=== PATIENT | female | born 1995 | race Caucasian/White ===

== ENCOUNTER 2018-08-04 08:00 | Outpatient (CLI) | payer OTHER ==
[2018-08-04 17:29] LABS: MUDS CUTOFF CONCENTRATIONS CUTOFF CONC BELOW:
[2018-08-04 19:41] LABS: AMPHETAMINE SCREEN,URINE NEGATIVE (NEGATIVE); BENZODIAZEPINES SCREEN, URINE NEGATIVE (NEGATIVE); COCAINE SCREEN URINE NEGATIVE (NEGATIVE); METHADONE SCREEN, URINE NEGATIVE (NEGATIVE); METHAMPHETAMINES SCREEN, URINE NEGATIVE (NEGATIVE); OPIATE SCREEN, URINE NEGATIVE (NEGATIVE); OXYCODONE SCREEN, URINE NEGATIVE (NEGATIVE); PROPOXYPHENE SCREEN, URINE NEGATIVE (NEGATIVE); TRICYCLIC ANTIDEPRESSANT,URINE NEGATIVE (NEGATIVE)
== END 2018-08-04 23:59 ==
LOC: LAB.R 08:00
PROVIDERS: ATTEND Nurse Practitioner Obstetrics & Gynecology
DX: Z36.89 Encounter for other specified antenatal screening (principal)
CPT/HCPCS: 80306; 87491; 87591

== ENCOUNTER 2018-08-25 13:02 | Outpatient (CLI) | payer OTHER ==
[2018-08-25 13:35] LABS: BASOPHILS % (AUTO) 0.4 %; EOSINOPHILS # (AUTO) 0.2 10^3/uL (0.0-0.7); HGB - HEMOGLOBIN 12.6 g/dL (12.0-16.0); LYMPHOCYTES # (AUTO) 1.5 10^3/uL (1.5-3.5); LYMPHOCYTES % (AUTO) 14.8 %; MEAN CORPUSCULAR HEMOGLOBIN 32.2 pg (27.0-31.0); MEAN CORPUSCULAR HGB CONC 35.1 g/dL (32.0-36.0); MEAN CORPUSCULAR VOLUME 91.6 fL (81.0-99.0); MEAN PLATELET VOLUME 7.1 fL (7.9-10.8); MONOCYTES # (AUTO) 0.6 10^3/uL (0.0-1.0); MONOCYTES % (AUTO) 5.4 %; NEUTROPHILS % (AUTO) 77.4 %; PLT - PLATELET COUNT 263 10^3/uL (130-450); RED BLOOD COUNT 3.93 10^6/uL (4.20-5.40); RED CELL DISTRIBUTION WIDTH 14.4 % (12.0-15.0); WHITE BLOOD COUNT 10.3 x10^3/uL (4.8-10.8)
[2018-08-25 14:00] LABS: BILIRUBIN,URINE NEGATIVE (NEGATIVE); GLUCOSE, URINE (UA) NEGATIVE (NEGATIVE); KETONES,URINE (UA) NEGATIVE (NEGATIVE); LEUKOCYTE ESTERASE, URINE NEGATIVE (NEGATIVE); NITRITE,URINE NEGATIVE (NEGATIVE); OCCULT BLOOD,URINE NEGATIVE (NEGATIVE); PH,URINE 6.5 PH (5.0-7.5); PROTEIN,URINE NEGATIVE (NEGATIVE); UROBILINOGEN,URINE 0.2 (NORMAL) E.U./dL (NORMAL)
[2018-08-25 14:10] LABS: CLARITY,URINE HAZY (CLEAR)
[2018-08-25 14:11] LABS: BACTERIA,URINE Few /HPF (None Seen); RBC,URINE 0-5 /HPF (0-5); SQUAMOUS EPITHELIAL CELL,UR MOD Squamous (<= Few)
[2018-08-26 11:42] LABS: HIV AG/AB 4TH GEN NON-REACTIVE (NON-REACTIVE)
[2018-08-26 13:17] LABS: HEPATITIS B SURFACE ANTIGEN NON-REACTIVE (NON-REACTIVE); HEPATITIS C ANTIBODY NON-REACTIVE (NON-REACTIVE)
== END 2018-08-25 13:03 | disposition home or self-care (01) ==
LOC: LAB 13:02
PROVIDERS: ATTEND Nurse Practitioner Obstetrics & Gynecology
DX: Z36.89 Encounter for other specified antenatal screening (principal)
CPT/HCPCS: 36415; 81001; 81599; 85025; 86592; 86762; 86803; 86850; 86900; 86901; 87086; 87340; 87389

== ENCOUNTER 2018-09-29 12:21 | Outpatient (CLI) | payer OTHER ==
--- NOTE | 2018-10-01 15:29 | Ultrasound Report ---
Reason: SUPERVISION OF NORMAL Procedure Date: 09/29/2018 Accession Number: [id number] / [id number] Procedure: US - OB Detailed Eval CPT Code: FULL RESULT: EXAM: COMPLETE OBSTETRICAL ULTRASOUND EXAM DATE: 09/29/2018 01:48 PM. CLINICAL HISTORY: anatomic survey. COMPARISON: None. Prior examinations not available for comparison at the time of dictation. TECHNIQUE: Real-time sonographic evaluation of the fetus performed by the rotor pilot. Multiple account representative static images were saved for review. DATING: Established EGA 19 weeks 6 days with JUSTYN 02/17/2019 based on stated dating. EGA 20 weeks 3 days with JUSTYN 02/13/2019 based on the current ultrasound. GENERAL EVALUATION Elizabeth . Cardiac activity: 142 bpm. movement: Visualized. Presentation: Variable. Placenta: Posterior position. No evidence for previa. Umbilical cord: 3 vessel cord. Central placental cord origin. Amniotic fluid: Normal. NAILA 15.1 cm. MVP 5.1 cm. BIOMETRY Bi-Parietal Diameter (BPD): 4.8 cm, 20 weeks 3 days Head Circumference (HC): 17.8 cm, 20 weeks 2 days Abdominal Circumference (AC): 15.4 cm, 20 weeks 4 days Femur Length (FL): 3.3 cm, 20 weeks 2 days Estimated Weight: 354 g, 77th percentile for 19 weeks 6 days. ANATOMY Transverse view of the kidneys is suboptimal. There is possible bilateral pyelectasis with the renal pelvises measuring 4 mm bilaterally (remeasured on image 66). View of the interventricular septum was not obtained. Remaining cardiac views, including the four-chamber heart and right and left ventricular outflow tracts, are unremarkable. Remainder of anatomy, including the intracranial structures, profile, face/nose/lips, stomach, abdominal wall and cord insertion, diaphragm, bladder, and extremities were visualized and demonstrate no abnormality. MATERNAL STRUCTURES Uterus: Unremarkable. Cervix: Long and closed. Transabdominal length 5 cm. Right ovary/adnexa: Unremarkable. Left ovary/adnexa: Ovary not visualized. However, adnexa is unremarkable. Free fluid: None. IMPRESSION: 1. Elizabeth live intrauterine in variable presentation with gestational age 19 weeks 6 days based on stated dating. 2. Estimated weight is at the 77th percentile, which is within expected limits for assigned dating. 3. Transverse view of the kidneys is somewhat suboptimal. There is possible bilateral pyelectasis with renal pelvises measuring 4 mm. In addition, a clear view of the interventricular septum was not obtained. Recommend follow-up ultrasound in 1-2 weeks to reassess these structures. 4. Remainder of anatomy is well visualized and unremarkable. No structural abnormalities are demonstrated. 5. Posterior placenta without evidence for previa. 6. Amniotic fluid volume is within normal limits. RADIA
== END 2018-09-29 12:22 | disposition home or self-care (01) ==
LOC: DI 12:21
PROVIDERS: ATTEND Registered Nurse
DX: Z34.90 Encounter for supervision of normal pregnancy, unspecified, unspecified trimester (principal)
CPT/HCPCS: 76811

== ENCOUNTER 2018-10-16 13:20 | Outpatient (CLI) | payer OTHER ==
--- NOTE | 2018-10-16 15:42 | Ultrasound Report ---
Reason: ENCTR FOR OTHER SPECIFIED SCREENING Procedure Date: 10/16/2018 Accession Number: [id number] / [id number] Procedure: US - OB F/U or Repeat CPT Code: FULL RESULT: EXAM: FOLLOW-UP OBSTETRICAL ULTRASOUND. EXAM DATE: 10/16/2018 02:13 PM. CLINICAL HISTORY: Completion of anatomy survey. Previously limited visualization of the interventricular septum and previous question of pyelectasis. COMPARISON: 09/29/2018. TECHNIQUE: Real-time sonographic evaluation of the fetus performed by the helicopter dispatcher. Multiple customer relations representative static images were saved for review. DATING: Established EGA 22 weeks 2 days with JUSTYN 02/17/2019 based on working obstetrics due date. GENERAL EVALUATION Elizabeth . Cardiac activity: 146 bpm. movement: Visualized. Presentation: Cephalic. Placenta: Posteriorly in the fundus position. Amniotic fluid: Normal. NAILA 14.6 cm. MVP 5.7 cm. ANATOMY Reevaluation of the kidneys demonstrates normal appearance with renal pelvices measuring up to 3.5 and up to 2.7 mm respectively, within normal limits. Visualization of the interventricular septum is once again suboptimal. MATERNAL STRUCTURES The maternal cervix is long and closed, 4.6 cm. IMPRESSION: 1. Elizabeth live intrauterine with gestational age 22 weeks 2 days based on working obstetrics due date. 2. Normal sonographic appearance of the kidneys and renal pelvices. 3. The interventricular septum is once again not adequately visualized. RADIA
== END 2018-10-16 13:21 | disposition home or self-care (01) ==
LOC: DI 13:20
PROVIDERS: ATTEND Registered Nurse
DX: Z36.89 Encounter for other specified antenatal screening (principal)
CPT/HCPCS: 76816

== ENCOUNTER 2018-11-10 09:26 | Outpatient (CLI) | payer OTHER ==
[2018-11-10 11:18] LABS: HGB - HEMOGLOBIN 12.3 g/dL (12.0-16.0); MEAN CORPUSCULAR HEMOGLOBIN 32.2 pg (27.0-31.0); MEAN CORPUSCULAR HGB CONC 33.6 g/dL (32.0-36.0); MEAN CORPUSCULAR VOLUME 95.8 fL (81.0-99.0); MEAN PLATELET VOLUME 7.2 fL (7.9-10.8); RED BLOOD COUNT 3.82 10^6/uL (4.20-5.40); WHITE BLOOD COUNT 12.1 x10^3/uL (4.8-10.8)
== END 2018-11-10 09:27 | disposition home or self-care (01) ==
LOC: LAB 09:26
PROVIDERS: ATTEND Obstetrics & Gynecology
DX: Z34.90 Encounter for supervision of normal pregnancy, unspecified, unspecified trimester (principal)
CPT/HCPCS: 36415; 82950; 85027; 86850

== ENCOUNTER 2018-11-22 11:26 | Outpatient (CLI) | payer OTHER ==
--- NOTE | 2018-11-22 13:05 | Ultrasound Report ---
Reason: SUPERVISION OF NORMAL Procedure Date: 11/22/2018 Accession Number: [id number] / [id number] Procedure: US - OB F/U or Repeat CPT Code: FULL RESULT: EXAM: FOLLOW-UP OBSTETRICAL ULTRASOUND EXAM DATE: 11/22/2018 11:33 AM. CLINICAL HISTORY: Limited obstetric follow-up imaging for completion of anatomy survey, specific attention to the interventricular septum. COMPARISON: OB F/U OR REPEAT 10/16/2018 2:13 PM. TECHNIQUE: Real-time sonographic evaluation of the fetus performed by the catapult and arresting gear officer. Multiple client services representative static images were saved for review. DATING: Established EGA 27 weeks 4 days with JUSTYN 02/17/2019 based on working due date. GENERAL EVALUATION Elizabeth . Cardiac activity: 139 bpm. movement: Visualized. Presentation: Cephalic. Placenta: Posterior position. Amniotic fluid: Normal. NAILA 15.1 cm. MVP 4.2 cm. ANATOMY The four-chamber cardiac view, right ventricular outflow tract view, left ventricular outflow tract view are all well demonstrated and normal in appearance. MATERNAL STRUCTURES The cervix is long and closed measuring 4.8 cm. IMPRESSION: 1. Elizabeth live intrauterine with gestational age 27 weeks 4 days based on working due date. 2. Normal completion of the anatomy survey. RADIA
== END 2018-11-22 11:27 | disposition home or self-care (01) ==
LOC: DI 11:26
PROVIDERS: ATTEND Obstetrics & Gynecology
DX: Z34.90 Encounter for supervision of normal pregnancy, unspecified, unspecified trimester (principal)
CPT/HCPCS: 76816

== ENCOUNTER 2019-01-22 20:36 | Emergency (ER) | payer OTHER ==
[2019-01-22] MEDS ORDERED: PROPARACAINE 0.5% OPHTH DROPS 15 ML RIGHTEYE STA (22:14)
--- NOTE | 2019-01-22 22:41 | ED Physician Documentation ---
PD HPI OPHTHO - Stated complaint Stated Complaint: LFT EYE PAIN - Chief complaint Chief Complaint: Heent - History obtained from History obtained from: Patient - History of Present Illness Timing - onset: Enter time (1999), Last night Timing - duration: Days (1) Timing - details: Abrupt onset, Still present Location: Left Quality / character: Sharp Associated symptoms: Redness, FB sensation. No: Swelling, Tearing, Discharge Contributing factors: Other (felt like she got something in the eye last night) Similar symptoms before: Has not had sx before Recently seen: Clinic (routine OB care at 36wks) - Additional information Additional information: Previously well 24-year-old female who is 36 weeks was getting ready for bed last night when she felt something got into her left eye. She had a foreign body sensation in the left eye all night she was only able to sleep bipolar putting her hand over her eye and not moving her eye she is had persistence of the pain today and she is come to the emergency department after calling the triage nurse. Review of Systems Constitutional: denies: Fever Eyes: reports: Irritation. denies: Loss of vision, Decreased vision, Photophobia, Discharge Ears: denies: Ear pain Nose: denies: Congestion Throat: denies: Sore throat Respiratory: denies: Cough PD PAST MEDICAL HISTORY - Past Medical History Past Medical History: No Cardiovascular: None Respiratory: None Neuro: None Endocrine/Autoimmune: None GI: None DYE AUTOMATION OPERATOR: None : None HEENT: None Psych: None Musculoskeletal: None Derm: None - Past Surgical History Past Surgical History: No - Present Medications Home Medications: Ambulatory Orders Medication Instructions Recorded Confirmed Neomycin/Poly/Dex Ophth Drops 1 drops LEFTEYE QID #1 bottle 01/22/19 [Maxitrol Ophth Drops] - Allergies Allergies/Adverse Reactions: Allergies Allergy/AdvReac Type Severity Reaction Status Date / Time No Known Drug Allergies Allergy Verified 01/22/19 20:57 - Social History Does the pt smoke?: No Smoking Status: Never smoker Does the pt drink ETOH?: No Does the pt have substance abuse?: No - Immunizations Immunizations are current?: Yes - POLST Patient has POLST: No PD ED PE NORMAL - Vitals Vital signs reviewed: Yes (hypertensive ) - General General: Alert and oriented X 3, No acute distress, Well developed/nourished - HEENT HEENT: Atraumatic, PERRL, EOMI - Neck Neck: Supple, no meningeal sign, No bony TTP - Respiratory Respiratory: No respiratory distress - Derm Derm: Normal color, Warm and dry, No rash - Extremities Extremities: No deformity, No edema - Neuro Neuro: Alert and oriented X 3, product marketing director 2-12 intact, No motor deficit, No sensory deficit, Normal speech Eye Opening: Spontaneous Motor: Obeys Commands Verbal: Oriented GCS Score: 15 - Psych Psych: Normal mood, Normal affect PD ED PE EXPANDED - Eyes Eyes: Visual acuity - see nn, PERRL, Normal accommodation, EOMI, Normal eyelids, No eyelid FB (everted), Nl conjunctiva/sclera, Normal corneas, Anterior chambers clear. No: Eyelid injury, Eyelid swelling, Eyelid erythema, Exudate, Conj/sclera FB, Subconj hemorrhage, Scleral icterus, Corneal abrasion, Corneal ulcer, Fluorescein uptake, Hyphema, Narrow angle Results - Vitals Vitals: Vital Signs - 24 hr 01/22/19 20:53 Temperature 36.3 C L Heart Rate 98 Respiratory 18 Rate Blood Pressure 143/90 H O2 Saturation 96 Oxygen O2 Source Room air PD MEDICAL DECISION MAKING - ED course Complexity details: considered differential, d/w patient ED course: 24-year-old female with a foreign body sensation in the left eye persistent at 24 hours has no specific findings on physical examination. She has no forcing uptake and no abnormality to the eye itself. The eyelid is everted there is no evidence of foreign body. She has relief of her pain with the alkaline consistent with a corneal abrasion. She is treated and we will use expectant management. She has referral to ophthalmology should she have persistence of her symptoms tomorrow. Departure - Departure Disposition: 01 Home, Self Care Clinical Impression: Pain in eye Qualifiers: Laterality: left Qualified Code(s): H57.12 - Ocular pain, left eye Condition: Stable Instructions: ED Eye Injury Corneal Abrasion Follow-Up: Niraj Alfred MD [Provider Admit Priv/Credential] - Prescriptions: Neomycin/Poly/Dex Ophth Drops [Maxitrol Ophth Drops] 1 drops LEFTEYE QID #1 bottle Comments: Today I do not see any evidence of a corneal abrasion your clinical course is consistent with an abrasion and this may have healed by now as is usual at 24 hours. If you continue to have pain tomorrow follow-up with the ophthalm ologist.
[2019-01-22] MEDS ORDERED: NEOMYCIN/POLYMYX/DEXAMETH OPHTH DROPS 5 ML RIGHTEYE STA (22:46)
[2019-01-22 22:57] VITALS: BP 121/89
== END 2019-01-22 22:58 | disposition home or self-care (01) ==
LOC: ED 20:36
DX: O99.89 Other specified diseases and conditions complicating pregnancy, childbirth and the puerperium (principal); H57.12 Ocular pain, left eye; Z3A.36 36 weeks gestation of pregnancy
CPT/HCPCS: 99282; 99284; J3490

== ENCOUNTER 2019-01-23 09:18 | Outpatient (CLI) | payer OTHER ==
[2019-01-23 21:34] LABS: TRICHOMONAS VAGINALIS DNA NEGATIVE (NEGATIVE)
== END 2019-01-23 23:59 | disposition home or self-care (01) ==
LOC: LAB.R 09:18
PROVIDERS: ATTEND Nurse Practitioner Obstetrics & Gynecology
DX: Z36.85 Encounter for antenatal screening for Streptococcus B (principal); Z36.89 Encounter for other specified antenatal screening
CPT/HCPCS: 87491; 87591; 87661; 87797

== ENCOUNTER 2019-02-04 03:45 | Outpatient (CLI) | payer OTHER ==
[2019-02-04] MEDS ORDERED: SODIUM CHLORIDE FLUSH 0.9% 10 ML SYRINGE ONE (04:33)
[2019-02-04 04:56] VITALS: BP 123/72
[2019-02-04 05:05] LABS: BACTERIA,URINE Few /HPF (None Seen); BILIRUBIN,URINE NEGATIVE (NEGATIVE); CLARITY,URINE HAZY (CLEAR); GLUCOSE, URINE (UA) NEGATIVE (NEGATIVE); KETONES,URINE (UA) NEGATIVE (NEGATIVE); LEUKOCYTE ESTERASE, URINE SMALL (NEGATIVE); NITRITE,URINE NEGATIVE (NEGATIVE); OCCULT BLOOD,URINE MODERATE (NEGATIVE); PROTEIN,URINE 100 mg/dL (NEGATIVE); SQUAMOUS EPITHELIAL CELL,UR FEW Squamous (<= Few); UROBILINOGEN,URINE 0.2 (NORMAL) E.U./dL (NORMAL)
--- NOTE | 2019-02-04 05:31 | Labor Flowsheet ---
Labor Flowsheet Datetime Report Generated by CPN: 02/04/2019 05:30 Datetime: 02/04/2019 04:25 VAGINAL EXAM Vaginal Exam Comments: Vaginal swab collected for wet mount and to lab. UA sent to lab. Datetime: 02/04/2019 04:22 Stage of : OB Triage PATIENT CARE Provider Reviewed Strip: No Strip Reviewed by: [email or web address] COMMUNICATION Communication: Call/Page Placed to Provider Provider Notified (Name): FELECIA Monae Notification Reason: Status Update Communication Comments: Provider notified of pt arrival and c/o low pelvic pain since last noc, wor se tonight. Pt also has c/o sciatic nerve pain affecting the loft leg. Reports no ctx, bleeding , f luid leaking or any other c/o. Baby moving well, no other probs during . Orders rcd to col lect wet mount, send UA. Datetime: 02/04/2019 04:01 VITAL SIGNS NBP Sys/Miley/Mean (mmHg): 123 : 72 : 85 Pulse: 120
[2019-02-04] MEDS ORDERED: cephALEXin 250 MG CAPSULE PO STA (05:41)
[2019-02-04] MEDS ORDERED: NITROFURANTOIN MACRO 100 MG CAPSULE PO SCH (09:00)
--- NOTE | 2019-02-04 10:32 | PROVIDER PROGRESS NOTE ---
- HPI Chief Complaint: Labor Check Current : Current EDU 02/17/19 Gestation 38 Weeks and 1 Days 1 Para 0 Vital Signs Temperature 36.7 C 02/04/19 04:18 Heart Rate 123 H 02/04/19 04:18 Respiratory Rate 16 02/04/19 04:18 Blood Pressure 123/72 02/04/19 04:18 Temperature 36.7 C 02/04/19 04:18 Heart Rate 123 H 02/04/19 04:18 Respiratory Rate 16 02/04/19 04:18 Blood Pressure 123/72 02/04/19 04:18 O2 Saturation - Exam S: Flavia present to [facility] with c/o constant lower abdominal and pelvic cramping. She reports she noticed the cramping yesterday evening when she was getting ready for bed and then states last night her cramping returned. She denies vaginal bleeding or leakage of fluid and reports +FM. She reports some increased urination but denies dysuria or hematuria. She denies fever or back pain. O: Vital signs WNL. Afebrile. UA positive - culture indicated Heart RRR w/o M/G/R, lungs CTAB. No CVA tenderness noted. NST - reactive. Baseline 140s, moderate variability, + accels, no decels Contractions not palpable and no contractions appreciated via tocometry. A: 24yo @ 38.3wks gestation Urinary tract infection P: Initial dose of Keflex for treatment of urinary tract infection. Rx for further treatment sent to [facility] in [place]. Patient released home with precautions. Pt verbalized understanding and agrees to above plan. She denies further questions or concerns at this time. FINAL DIAGNOSIS: Urinary tract infection
== END 2019-02-04 06:01 | disposition home or self-care (01) ==
LOC: WFO 03:45 → FBP 03:46 → WFO 06:01
PROVIDERS: ATTEND Nurse Practitioner Obstetrics & Gynecology
DX: O23.43 Unspecified infection of urinary tract in pregnancy, third trimester (principal); Z3A.38 38 weeks gestation of pregnancy
CPT/HCPCS: 81001; 87086; 87210; 99213; A9270

== ENCOUNTER 2019-02-07 16:27 | Outpatient (CLI) | payer OTHER ==
[2019-02-07 16:53] VITALS: BP 118/73
--- NOTE | 2019-02-07 19:23 | Ultrasound Report ---
Reason: check NAILA Procedure Date: 02/07/2019 Accession Number: [id number] / [id number] Procedure: US - OB Limited CPT Code: FULL RESULT: EXAM: LIMITED OBSTETRICAL ULTRASOUND EXAM DATE: 02/07/2019 05:54 PM. CLINICAL HISTORY: Check NAILA. Suspected low fluid per nurse. Check NAILA. COMPARISON: None. TECHNIQUE: Real-time sonographic evaluation of the fetus performed by the gleason gear generator. Multiple agency sales representative static images were saved for review. Additional transvaginal imaging to more accurately evaluate cervical length/placental position/etc. DATING: Established EGA 38 weeks 4 days with JUSTYN 02/17/2019. GENERAL EVALUATION Elizabeth . Cardiac activity: 139 bpm. Presentation: Cephalic. Placenta: Posterior position. Amniotic fluid: Normal. NAILA 19.3 cm. MVP 6.6 cm. IMPRESSION: 1. Elizabeth live intrauterine with gestational age 38 weeks 4 days based on established JUSTYN. 2. Amniotic fluid: Normal. NAILA 19.3 cm. MVP 6.6 cm. RADIA
--- NOTE | 2019-02-08 05:46 | PROVIDER PROGRESS NOTE ---
- HPI Chief Complaint: Hypertension/PIH Current : Current EDU 02/17/19 Gestation 38 Weeks and 4 Days 1 Para 0 Vital Signs Temperature 98.6 F 02/07/19 16:52 Heart Rate 91 02/07/19 16:52 Respiratory Rate 16 02/07/19 16:52 Blood Pressure 118/73 02/07/19 16:52 O2 Saturation 98 02/07/19 16:52 Temperature 98.6 F 02/07/19 16:52 Heart Rate 91 02/07/19 16:52 Respiratory Rate 16 02/07/19 16:52 Blood Pressure 118/73 02/07/19 16:52 O2 Saturation 98 02/07/19 16:52 - Exam Patient is a 25 and 4-year-old G1, P0 at 38 4 weeks estimated gestational age seen in clinic today with elevated blood pressures. Patient was seen in clinic today for routine OB visit. She has had severe back pain related to sciatica. Blood pressures were mildly elevated in the 140s over 90s. No headache/vision change/right upper quadrant pain. Fundal height was measuring 3 cm behind. Sent to triage for further evaluation of blood pressures and for ultrasound for fluid level check. - Procedures OB Procedure Performed: NST Diagnosis/Indication for NST: Gestational Hypertension NST Procedure: NST Procedure Start Date 02/07/19 Start Time 16:40 Stop Time 17:20 Vibroacoustic Stimulation Used No Patient States Movement Yes EFM 135 moderate variability 15 x 15 accelerations no decelerations Zillah every 3 to 5 minutes, mild Service Date of procedure: 02/07/19 Procedure Details: 24-year-old at 38 weeks 4 days EGA with elevated blood pressures in clinic and Drop in fundal height G HTN: Blood pressures consistently within normal range during a period of observation in triage well-being: -Category 1 tracing -Vertex by ultrasound -NAILA 19.5 -GBS neg Back pain limiting gait: -Gait limited secondary to pain. -Provided with walker online from hospital. Warning signs reviewed Discharged home Scheduled for induction of labor on Monday 02/12
== END 2019-02-07 19:53 | disposition home or self-care (01) ==
LOC: FBP 16:27 → WFO 16:27
PROVIDERS: ATTEND Obstetrics & Gynecology
DX: O13.3 Gestational [pregnancy-induced] hypertension without significant proteinuria, third trimester (principal); Z3A.38 38 weeks gestation of pregnancy; O99.89 Other specified diseases and conditions complicating pregnancy, childbirth and the puerperium; M54.9 Dorsalgia, unspecified
CPT/HCPCS: 59025; 76815

== ENCOUNTER 2019-02-12 07:41 | Inpatient (IN) | payer OTHER ==
[2019-02-12] MEDS ORDERED: fentaNYL 100 MCG/2 ML VIAL IVP PRN (09:48)
[2019-02-12] MEDS ORDERED: METHYLERGONOVINE 0.2 MG/ML AMP IM PRN (09:48)
[2019-02-12] MEDS ORDERED: SODIUM CHLORIDE FLUSH 0.9% 10 ML SYRINGE IVP PRN (09:48)
[2019-02-12] MEDS ORDERED: OXYTOCIN/DEXTROSE 5 % 30 UNIT/500 ML BAG IV PRN (09:48)
[2019-02-12] MEDS ORDERED: miSOPROStol 200 MCG TABLET PR PRN (09:48)
[2019-02-12] MEDS ORDERED: CARBOPROST TROMETHAMINE 250 MCG/ML AMP IM PRN (09:48)
[2019-02-12] MEDS ORDERED: PROMETHAZINE 25 MG TABLET PO PRN (09:48)
[2019-02-12] MEDS ORDERED: METOCLOPRAMIDE 10 MG/2 ML VIAL IVP PRN (09:48)
[2019-02-12] MEDS ORDERED: ACETAMINOPHEN 325 MG TABLET PO PRN (09:48)
[2019-02-12] MEDS ORDERED: OXYTOCIN/DEXTROSE 5 % 30 UNIT/500 ML BAG IV SCH (10:00)
[2019-02-12] MEDS ORDERED: LACTATED RINGERS 1,000 ML IV SCH (10:00)
[2019-02-12 10:23] LABS: BASOPHILS % (AUTO) 0.2 %; EOSINOPHILS # (AUTO) 0.1 10^3/uL (0.0-0.7); EOSINOPHILS % (AUTO) 0.6 %; HGB - HEMOGLOBIN 12.7 g/dL (12.0-16.0); LYMPHOCYTES # (AUTO) 1.6 10^3/uL (1.5-3.5); LYMPHOCYTES % (AUTO) 12.6 %; MEAN CORPUSCULAR HGB CONC 34.7 g/dL (32.0-36.0); MEAN CORPUSCULAR VOLUME 95.1 fL (81.0-99.0); MEAN PLATELET VOLUME 9.3 fL (7.9-10.8); MONOCYTES # (AUTO) 0.7 10^3/uL (0.0-1.0); MONOCYTES % (AUTO) 5.8 %; NEUTROPHILS # (AUTO) 9.9 10^3/uL (1.5-6.6); PLT - PLATELET COUNT 227 10^3/uL (130-450); RED BLOOD COUNT 3.85 10^6/uL (4.20-5.40); RED CELL DISTRIBUTION WIDTH 13.8 % (12.0-15.0); WHITE BLOOD COUNT 12.4 x10^3/uL (4.8-10.8)
[2019-02-12] MEDS: miSOPROStol 100 MCG TABLET BC SCH ×2 (12:30→21:14)
[2019-02-12 16:55] VITALS: BP 124/78
[2019-02-12] MEDS ORDERED: SODIUM CHLORIDE FLUSH 0.9% 10 ML SYRINGE IVP SCH (17:00)
--- NOTE | 2019-02-12 19:38 | HISTORY & PHYSICAL EXAMINATION ---
Admit History - Visit Reason Visit Reason: Other (Induction of labor) - Smoking Status: Never smoker - Mother's Labs Mother's Blood Type: positive: B Mother's RH: positive: Positive GBS: positive: Group B Step Negative Rubella Status: positive: Immune - Other Maternal History Other Maternal History: Patient is a 24-year-old G1, P0 at 39w2d with JUSTYN 02/17/19 weeks gestational age for induction of labor.. She was last seen in clinic on 02/07/2019. At that time she had severe back pain due to sciatica. She was seen in the triage for one isolated elevated blood pressure. All blood pressures were normal on repeat. PIH labs are normal. She has no elevated blood pressures today nor does she have any symptoms of headache/vision change/right upper quadrant pain. Back pain is relieved today. She is here for an elective induction of labor. Consents were obtained in clinic on 02/07/2019. Endorses movement. Denies vaginal bleeding/loss of fluid/contraction. PNL: B+/rubella immune I-S unreadable due to late gestational age Glucola Glucola 111 FAS within normal limits, posterior placenta Tdap 11/21/2018 HSV: Denies GBS negative Vertex by formal ultrasound. Informal bedside ultrasound confirmed vertex position today. Meds/Allgy - Home Medications Home Medications: Ambulatory Orders Medication Instructions Recorded Confirmed Neomycin/Poly/Dex Ophth Drops 1 drops LEFTEYE QID #1 bottle 01/22/19 [Maxitrol Ophth Drops] - Allergies Allergies/Adverse Reactions: Allergies Allergy/AdvReac Type Severity Reaction Status Date / Time No Known Drug Allergies Allergy Verified 01/22/19 20:57 Review of Systems - Other Findings Other Findings: As per HPI otherwise remaining systems are negative. Physical - Abdominal Exam Vital Signs: Temp Pulse Resp BP Pulse Ox 98.1 F 93 18 124/78 98 02/12/19 16:53 02/12/19 16:53 02/12/19 16:53 02/12/19 16:53 02/12/19 16:53 Contraction Frequency (min/apart): Every 2 minutes, mild Contraction Intensity: positive: Mild Uterine Resting Tone: positive: Soft - Monitoring Heart Rate Baseline: 135 moderate variability 15 x 15 accelerations no decelerations. Strip Review: positive: Category I - Presentation Presentation: positive: Vertex - Vaginal Exam Membranes: positive: Membranes intact Dilation (in cm): Fingertip Effacement (%): 20% Station: positive: -2 Cervical Position: positive: Posterior - Speculum Exam Speculum Exam Performed: positive: No Plan for Labor - Plan For Labor Plan for Labor: 24-year-old G1, P0 at 39 weeks 2 days with JUSTYN 02/17/2019 here for elective induction of labor. IOL: Unfavorable cervix with low Gutierrez score. Risks benefits and alternatives of induction of labor were reviewed. Written informed consent was obtained. -We will proceed with cervical ripening with misoprostol 50 mcg BC every 4 hours up to 6 doses. -Reviewed role and application ofof Bryan bulb. Will place once cervix is more favorable or when contractions become too frequent for misoprostol use. -Pitocin once cervical exam is favorable. -AROM when indicated. FWB: -Vertex confirmed by bedside ultrasound -Category 1 tracing -GBS negative -Well grown -Continuous external monitoring. Pain: -Does not desire unmedicated . -Discussed options available. These include: *IV fentanyl up until 7 cm dilation. Not to exceed cumulative dose of 200 mcg. *Nitrous oxide during first stage and second stage is appropriate *Epidural as patient desires. Anticipate
[2019-02-13] MEDS: miSOPROStol 100 MCG TABLET BC SCH (05:57)
--- NOTE | 2019-02-13 06:05 | PROVIDER PROGRESS NOTE ---
Labor Progress Note - Labor Progress Note Labor Progress Note/Additional Text: The patient's cervix this morning appears to be less than a fingertip. I cannot get a fingertip through the external loss at all. The cervix is possibly 50% effaced , -2 and average consistency.There is a category 1 external monitor strip noted. She has had 2 doses of misoprostol. She was purvi every 2 minutes. She was stated that these were uncomfortable. She got in the Jacuzzi and since she got out of the Jacuzzi have now spaced out to about every 6 minutes and are mild at most. We will therefore continue with misoprostol.We will continue to watch the patient closely.
--- NOTE | 2019-02-13 12:51 | PROVIDER PROGRESS NOTE ---
Labor Progress Note - Uterine Monitoring Uterine Monitoring Mode: positive: External toco Contraction Frequency (min/apart): q3 Contraction Intensity: positive: Mild Uterine Resting Tone: positive: Soft - Monitoring Monitor Mode: positive: External ultrasound Heart Rate Variability: positive: Moderate (6-25 bmp) Accelerations: positive: Present, 15x15 Decelerations: positive: None Strip Review: positive: Category I - Vaginal Exam Dilation (in cm): 0 Effacement (%): 50 Station: -3 Cervical Position: Posterior - Labor Progress Note Labor Progress Note/Additional Text: Cx ic unchanged with reactive NST and negative DATA VIRTUALIZATION CONSULTANT back pain resolved received 3 doses of cytotec without significant change. indication resolved without change. will watch 1-2 hours if contractions modulate will send home.
== END 2019-02-13 15:25 | disposition home or self-care (01) | DRG 833 ==
LOC: WFO 07:41 → FBP 07:44 → WFO 09:47 → FBP 09:48
PROVIDERS: ADMIT Obstetrics & Gynecology; ATTEND Obstetrics & Gynecology
DX: O61.0 Failed medical induction of labor (principal); Z3A.39 39 weeks gestation of pregnancy
CPT/HCPCS: 36415; 85025; 86850; 86900; 86901; A9270

== ENCOUNTER 2019-02-16 16:55 | Inpatient (IN) | payer OTHER ==
[2019-02-16] MEDS ORDERED: SODIUM CHLORIDE FLUSH 0.9% 10 ML SYRINGE ONE (18:18)
[2019-02-16] MEDS ORDERED: CARBOPROST TROMETHAMINE 250 MCG/ML AMP IM PRN (19:13)
[2019-02-16] MEDS ORDERED: METHYLERGONOVINE 0.2 MG/ML AMP IM PRN (19:13)
[2019-02-16] MEDS ORDERED: miSOPROStol 200 MCG TABLET PR ONE (19:13)
[2019-02-16] MEDS ORDERED: fentaNYL 100 MCG/2 ML VIAL IVP PRN (19:13)
[2019-02-16] MEDS ORDERED: miSOPROStol 200 MCG TABLET PR PRN (19:13)
[2019-02-16] MEDS ORDERED: ACETAMINOPHEN 325 MG TABLET PO PRN (19:13)
[2019-02-16] MEDS ORDERED: SODIUM CHLORIDE FLUSH 0.9% 10 ML SYRINGE IVP PRN (19:13)
[2019-02-16] MEDS ORDERED: OXYTOCIN/SODIUM CHLORIDE 500 ML IV PRN (19:13)
[2019-02-16] MEDS ORDERED: ONDANSETRON ODT 4 MG TABLET TL PRN (19:13)
[2019-02-16] MEDS ORDERED: METOCLOPRAMIDE 10 MG TABLET PO PRN (19:13)
[2019-02-16] MEDS ORDERED: METOCLOPRAMIDE 10 MG/2 ML VIAL IVP PRN (19:13)
[2019-02-16] MEDS ORDERED: ZOLPIDEM 5 MG TABLET PO PRN (19:36)
--- NOTE | 2019-02-16 19:39 | HISTORY & PHYSICAL EXAMINATION ---
Admit History - Smoking Status: Never smoker - Mother's Labs Mother's Blood Type: positive: B Mother's RH: positive: Positive GBS: positive: Group B Step Negative Rubella Status: positive: Immune - Other Maternal History Other Maternal History: Patient is a 24-year-old G1, P0 at 39w6d with JUSTYN 02/17/19 weeks gestational age for induction of labor.. She was last seen in clinic on 02/07/2019. At that time she had severe back pain due to sciatica. She was seen in the triage for one isolated elevated blood pressure. All blood pressures were normal on repeat. PIH labs are normal. She has no elevated blood pressures today nor does she have any symptoms of headache/vision change/right upper quadrant pain. Back pain is relieved today. Consents were obtained in clinic on 02/07/2019. She was admitted 02/12/19 here for an elective induction of labor. She had 3 doses of misoprostol with no significant cervical change. Was discharged with plan to readmit at today. Endorses movement. Denies vaginal bleeding/loss of fluid/contraction. PNL: B+/rubella immune I-S unreadable due to late gestational age Glucola Glucola 111 FAS within normal limits, posterior placenta Tdap 11/21/2018 HSV: Denies GBS negative Vertex by formal ultrasound. Informal bedside ultrasound confirmed vertex position 02/12/19 No change in health hx since time of prior admission. Meds/Allgy - Home Medications Home Medications: Ambulatory Orders Medication Instructions Recorded Confirmed Neomycin/Poly/Dex Ophth Drops 1 drops LEFTEYE QID #1 bottle 01/22/19 [Maxitrol Ophth Drops] - Allergies Allergies/Adverse Reactions: Allergies Allergy/AdvReac Type Severity Reaction Status Date / Time No Known Drug Allergies Allergy Verified 01/22/19 20:57 Review of Systems - Other Findings Other Findings: As per HPI, otherwise remaining systems are negative Physical - Abdominal Exam Contraction Frequency (min/apart): intermittent Contraction Intensity: positive: Mild Uterine Resting Tone: positive: Soft - Monitoring Heart Rate Baseline: 135 Strip Review: positive: Category I - Presentation Presentation: positive: Vertex - Vaginal Exam Membranes: positive: Membranes intact Dilation (in cm): closed Effacement (%): 60 Station: positive: -2 Cervical Position: positive: Posterior - Speculum Exam Speculum Exam Performed: positive: No Plan for Labor - Plan For Labor Plan for Labor: 24-year-old G1, P0 at 39 weeks 6 days with JUSTYN 02/17/2019 here for elective induction of labor. IOL: Unfavorable cervix with low Gutierrez score. Risks benefits and alternatives of induction of labor were reviewed. Written informed consent was obtained. -We will proceed with cervical ripening with misoprostol 50 mcg BC every 4 hours up to 6 doses. -Reviewed role and application of Bryan bulb. Will place once cervix is more favorable or when contractions become too frequent for misoprostol use. -Pitocin once cervical exam is favorable. -AROM when indicated. FWB: -Vertex -Category 1 tracing -GBS negative -Well grown -Continuous external monitoring. Pain: -Does not desire unmedicated . -Discussed options available. These include: *IV fentanyl up until 7 cm dilation. Not to exceed cumulative dose of 200 mcg. *Nitrous oxide during first stage and second stage is appropriate *Epidural as patient desires. Anticipate
[2019-02-16] MEDS ORDERED: OXYTOCIN/SODIUM CHLORIDE 500 ML IV SCH (20:00)
[2019-02-16 20:10] LABS: BASOPHILS % (AUTO) 0.3 %; EOSINOPHILS # (AUTO) 0.2 10^3/uL (0.0-0.7); EOSINOPHILS % (AUTO) 1.4 %; HGB - HEMOGLOBIN 12.9 g/dL (12.0-16.0); LYMPHOCYTES # (AUTO) 1.9 10^3/uL (1.5-3.5); LYMPHOCYTES % (AUTO) 18.1 %; MEAN CORPUSCULAR HEMOGLOBIN 33.1 pg (27.0-31.0); MEAN CORPUSCULAR VOLUME 94.6 fL (81.0-99.0); MEAN PLATELET VOLUME 9.4 fL (7.9-10.8); MONOCYTES # (AUTO) 0.7 10^3/uL (0.0-1.0); MONOCYTES % (AUTO) 6.9 %; NEUTROPHILS # (AUTO) 7.7 10^3/uL (1.5-6.6); NEUTROPHILS % (AUTO) 72.6 %; PLT - PLATELET COUNT 237 10^3/uL (130-450); RED CELL DISTRIBUTION WIDTH 13.5 % (12.0-15.0); WHITE BLOOD COUNT 10.6 x10^3/uL (4.8-10.8)
[2019-02-16] MEDS ORDERED: miSOPROStol 100 MCG TABLET BC SCH (21:00)
[2019-02-17] MEDS: SODIUM CHLORIDE FLUSH 0.9% 10 ML SYRINGE IVP SCH (04:52)
[2019-02-17] MEDS: LACTATED RINGERS 1,000 ML IV SCH (04:52)
--- NOTE | 2019-02-17 08:24 | PROVIDER PROGRESS NOTE ---
Subjective - Prog Note Date Prog Note Date: 02/17/19 Prog Note Time: 08:21 - Subjective Subjective: Has had one dose of misoprostol Purvi regularly and beginning to be painful. Notes blood tinged discharge Currently eating BF Objective - Vital Signs/Intake & Output Intake & Output: Intake & Output 02/14/19 02/15/19 02/16/19 02/17/19 23:59 23:59 23:59 23:59 Output Total 300 Balance -300 - Objective General Appearance: positive: No acute distress Neck: positive: Nml inspection Respiratory: positive: No respiratory distress Rectal: positive: Other (Gravid,S&NT) Skin: positive: Color nml Extremities: positive: Non-tender - Lab Results Fish Bones: 02/16/19 18:45 Other Labs: Lab Results x24hrs 02/16/19 Range/Units 18:45 WBC 10.6 (4.8-10.8) x10^3/uL RBC 3.90 L (4.20-5.40) 10^6/uL Hgb 12.9 (12.0-16.0) g/dL Hct 36.9 L (37.0-47.0) % MCV 94.6 (81.0-99.0) fL MCH 33.1 H (27.0-31.0) pg MCHC 35.0 (32.0-36.0) g/dL RDW 13.5 (12.0-15.0) % Plt Count 237 (130-450) 10^3/uL MPV 9.4 (7.9-10.8) fL Neut # (Auto) 7.7 H (1.5-6.6) 10^3/uL Lymph # (Auto) 1.9 (1.5-3.5) 10^3/uL [place] # (Auto) 0.7 (0.0-1.0) 10^3/uL Eos # (Auto) 0.2 (0.0-0.7) 10^3/uL Baso # (Auto) 0.0 (0.0-0.1) 10^3/uL Absolute Nucleated RBC 0.00 x10^3/uL Nucleated RBC % 0.0 /100WBC Assessment/Plan - Problem List (1) Elective induction of labor planned Impression: 40+) wga IOL: Miso x1; purvi regularly Will check SVE after BF Bryan balloon next possibility given frequency of ctx Cat I tracing \ Anticipate
--- NOTE | 2019-02-17 12:21 | PROVIDER PROGRESS NOTE ---
Subjective - Prog Note Date Prog Note Date: 02/17/19 Prog Note Time: 12:19 - Subjective Subjective: Beginning to feel some contractions. Has not had any misoprostol after the first dose and is purvi every 1-2 minutes. No LOD. Small amount of blood show. Objective - Vital Signs/Intake & Output Intake & Output: Intake & Output 02/14/19 02/15/19 02/16/19 02/17/19 23:59 23:59 23:59 23:59 Output Total 300 Balance -300 - Objective General Appearance: positive: No acute distress ENT: positive: No signs of dehydration Abdomen: positive: Other (gravid, S&NT) Back: positive: Nml inspection Skin: positive: Color nml Extremities: positive: Non-tender Neurologic/Psychiatric: positive: Oriented x3 - Lab Results Fish Bones: 02/16/19 18:45 Other Labs: Lab Results x24hrs 02/16/19 Range/Units 18:45 WBC 10.6 (4.8-10.8) x10^3/uL RBC 3.90 L (4.20-5.40) 10^6/uL Hgb 12.9 (12.0-16.0) g/dL Hct 36.9 L (37.0-47.0) % MCV 94.6 (81.0-99.0) fL MCH 33.1 H (27.0-31.0) pg MCHC 35.0 (32.0-36.0) g/dL RDW 13.5 (12.0-15.0) % Plt Count 237 (130-450) 10^3/uL MPV 9.4 (7.9-10.8) fL Neut # (Auto) 7.7 H (1.5-6.6) 10^3/uL Lymph # (Auto) 1.9 (1.5-3.5) 10^3/uL [place] # (Auto) 0.7 (0.0-1.0) 10^3/uL Eos # (Auto) 0.2 (0.0-0.7) 10^3/uL Baso # (Auto) 0.0 (0.0-0.1) 10^3/uL Absolute Nucleated RBC 0.00 x10^3/uL Nucleated RBC % 0.0 /100WBC - Other Results/Comments Other Results/Comments: EFM 130 mod berenice no accels, no decels TOCO: Q2 min Assessment/Plan - Problem List (1) Elective induction of labor planned Impression: Purvi too frequently for misoprostol SVE FT/70/-3 Bryan balloon placed with 60 cc NS infused in the uterine bulb and 40 cc in the vaginal balloon Fentanyl 50 mcg prior to placement Placed on tension Cat I tracing with accels present prior to fentanyl administration. Cont to monitor
[2019-02-17] MEDS: ONDANSETRON 4 MG/2 ML VIAL IVP PRN (12:46)
--- NOTE | 2019-02-17 18:14 | PROVIDER PROGRESS NOTE ---
Subjective - Prog Note Date Prog Note Date: 02/17/19 Prog Note Time: 18:11 - Subjective Pt reports feeling: Improved (Very comfortable with Nitrous oxide.) Objective - Vital Signs/Intake & Output Intake & Output: Intake & Output 02/14/19 02/15/19 02/16/19 02/17/19 23:59 23:59 23:59 23:59 Intake Total 1848.333 Output Total 300 Balance 1548.333 - Objective General Appearance: positive: No acute distress Respiratory: positive: No respiratory distress - Lab Results Fish Bones: 02/16/19 18:45 Other Labs: Lab Results x24hrs 02/16/19 Range/Units 18:45 WBC 10.6 (4.8-10.8) x10^3/uL RBC 3.90 L (4.20-5.40) 10^6/uL Hgb 12.9 (12.0-16.0) g/dL Hct 36.9 L (37.0-47.0) % MCV 94.6 (81.0-99.0) fL MCH 33.1 H (27.0-31.0) pg MCHC 35.0 (32.0-36.0) g/dL RDW 13.5 (12.0-15.0) % Plt Count 237 (130-450) 10^3/uL MPV 9.4 (7.9-10.8) fL Neut # (Auto) 7.7 H (1.5-6.6) 10^3/uL Lymph # (Auto) 1.9 (1.5-3.5) 10^3/uL [place] # (Auto) 0.7 (0.0-1.0) 10^3/uL Eos # (Auto) 0.2 (0.0-0.7) 10^3/uL Baso # (Auto) 0.0 (0.0-0.1) 10^3/uL Absolute Nucleated RBC 0.00 x10^3/uL Nucleated RBC % 0.0 /100WBC - Other Results/Comments Other Results/Comments: EFM 135 mod berenice 15x15 accels no decels TOCO: Q2-3 min Bryan balloon remained in place. Increased tension placed on balloon and patient report that it fell out less than 15 min later SVE 5/70/-2 with taut bag Assessment/Plan - Problem List (1) Elective induction of labor planned Impression: SVE /-2 with taut bag Bryan fell out spontaneously. No augmentation indicated at this time Will get in bath for pain management Consider AROM if no cervical change in 4 hours. Reviewed that cervical dilation reflects work of Bryan balloon and work of uterus may take some time to catch up Cont with expt management for now Anticipate
[2019-02-18] MEDS: SODIUM CHLORIDE FLUSH 0.9% 10 ML SYRINGE IVP SCH (00:59)
[2019-02-18] MEDS: ONDANSETRON 4 MG/2 ML VIAL IVP PRN (00:59)
[2019-02-18] MEDS: LACTATED RINGERS 1,000 ML IV SCH ×4 (02:00→22:00)
[2019-02-18] MEDS ORDERED: ROPIVACAINE 0.2% 200 MG/100 ML BAG EP ONE ×2 (02:41→17:56)
[2019-02-18] MEDS ORDERED: fentaNYL 100 MCG/2 ML VIAL ONE ×2 (02:41→17:55)
[2019-02-18] MEDS ORDERED: NALBUPHINE 10 MG/ML AMP IVP PRN (03:20)
[2019-02-18] MEDS ORDERED: ONDANSETRON 4 MG/2 ML VIAL IVP PRN (03:20)
[2019-02-18] MEDS ORDERED: ePHEDrine 50 MG/ML VIAL IVP PRN (03:20)
[2019-02-18] MEDS ORDERED: LACTATED RINGERS 500 ML IV ONE (03:20)
[2019-02-18] MEDS ORDERED: METOCLOPRAMIDE 10 MG/2 ML VIAL IVP PRN (03:20)
[2019-02-18] MEDS ORDERED: diphenhydrAMINE INJ 50 MG/ML VIAL IVP PRN (03:20)
[2019-02-18] MEDS ORDERED: NALOXONE 0.4 MG/ML VIAL IVP PRN (03:20)
--- NOTE | 2019-02-18 03:20 | ANESTHESIA ---
Pre-Anesthesia VS, & Labs - Diagnosis Pain - Procedure Epidural Height 5 ft 7 in Weight (kg) 93.894 kg Body Mass Index 34.0 - NPO >8 hours - Is Patient ?: Yes - Lab Results Current Lab Results: Laboratory Tests 02/16/19 18:45: WBC 10.6, RBC 3.90 L, Hgb 12.9, Hct 36.9 L, MCV 94.6, MCH 33.1 H , MCHC 35.0, RDW 13.5, Plt Count 237, MPV 9.4, Neut # (Auto) 7.7 H, Lymph # (Aut o) 1.9, [place] # (Auto) 0.7, Eos # (Auto) 0.2, Baso # (Auto) 0.0, Absolute Nucleated RBC 0.00, Nucleated RBC % 0.0 Lab results reviewed: Yes Fish Bones: 02/16/19 18:45 Home Medications and Allergies Active Medications Acetaminophen (Tylenol) 650 mg PO Q6H PRN PRN Reason: Pain or Fever Fentanyl (Fentanyl) 50 mcg IVP Q1H PRN PRN Reason: PAIN Last Admin: 02/17/19 11:50 Dose: 50 mcg Lactated Ringer's (Lr) 1,000 mls @ 100 mls/hr IV .Q10H MATT Last Admin: 02/18/19 02:00 Dose: 999 mls/hr Oxytocin/Sodium Chloride (Pitocin/Sodium Chloride) 500 mls @ 1 mls/hr IV TITR MATT; Protocol Oxytocin/Sodium Chloride (Pitocin/Sodium Chloride) 500 mls @ 999 mls/hr IV PRN PRN; Protocol PRN Reason: POST- HEMORR PREVENTION Methylergonovine Maleate (Methergine Inj) 0.2 mg IM Q4H PRN PRN Reason: Post- Hemorrhage Metoclopramide HCl (Reglan) 5 mg PO Q6H PRN PRN Reason: Nausea / Vomiting Metoclopramide HCl (Reglan Inj) 5 mg IVP Q6H PRN PRN Reason: Nausea / Vomiting Misoprostol (Cytotec) 50 mcg BC Q4HR MATT Last Admin: 02/16/19 19:58 Dose: 50 mcg Ondansetron HCl (Zofran Inj) 4 mg IVP Q4HR PRN PRN Reason: Nausea / Vomiting Last Admin: 02/18/19 00:59 Dose: 4 mg Ondansetron HCl (Zofran Odt) 4 mg TL Q4HR PRN PRN Reason: Nausea / Vomiting Sodium Chloride (Normal Saline Flush 0.9%) 10 ml IVP 0100,0900,1700 MATT Last Admin: 02/18/19 00:59 Dose: 10 ml Sodium Chloride (Normal Saline Flush 0.9%) 10 ml IVP PRN PRN PRN Reason: NEEDED PER PROVIDER ORDERS Last Admin: 02/18/19 02:01 Dose: 10 ml Zolpidem Tartrate (Ambien) 5 mg PO QPM PRN PRN Reason: Insomnia Last Admin: 02/16/19 22:35 Dose: 5 mg Allergies/Adverse Reactions: Allergies Allergy/AdvReac Type Severity Reaction Status Date / Time No Known Drug Allergies Allergy Verified 01/22/19 20:57 Anes History & Medical History - Anesthetic History Anesthesia Complications: reports: No previous complications Family history of Anesthesia Complications: Denies Family history of Malignant Hyperthermia: Denies - Medical History Cardiovascular: reports: None Pulmonary: reports: None Gastrointestinal: reports: None Urinary: reports: None Neuro: reports: None Musculoskeletal: reports: None, Scoliosis Endocrine/Autoimmune: reports: None Blood Disorders: reports: None Skin: reports: None Smoking Status: Never smoker Psychosocial: reports: No issues indicated Exam General: Alert, Oriented x3, Cooperative, Moderate distress Dental: WNL Mouth Openin Fingerbreadth Neck Mobility: Normal Mallampati classification: II Thyromental Distance: 4-6 cm Respiratory: Lungs clear Cardiovascular: Regular rate, No murmurs Plan Anesthesia Type: Epidural Consent for Procedure(s) Verified and Reviewed: Yes Code Status: Attempt Resuscitation ASA classification: 2-Mild systemic disease Is this case an emergency?: No
[2019-02-18] MEDS ORDERED: ROPIVACAINE 0.2% 200 MG/100 ML BAG EP PRN (03:23)
--- NOTE | 2019-02-18 10:21 | PROVIDER PROGRESS NOTE ---
Subjective - Prog Note Date Prog Note Date: 02/18/19 Prog Note Time: 08:30 - Subjective Subjective: Diana is comfortable with an epidural in place. Contractions have slowed but remain regular. She has had no augmentation since the Bryan bulb fellout. Membranes are intact. No complaints. Objective - Vital Signs/Intake & Output Intake & Output: Intake & Output 02/15/19 02/16/19 02/17/19 02/18/19 23:59 23:59 23:59 23:59 Intake Total 3017.878 9943 Output Total 300 150 Balance 1548.333 850 - Objective General Appearance: positive: No acute distress Neck: positive: Nml inspection Respiratory: positive: No respiratory distress Cardiovascular: positive: Regular rate & rhythm Abdomen: positive: Other (Gravid, soft, and nontender) Skin: positive: Color nml Extremities: positive: Non-tender Neurologic/Psychiatric: positive: Oriented x3 Comments/Other: SVE 6/80/-2 head high on pubic bone Bedside us confirmed vertex, likely LOP position Cat I tracing TOCO: Q3-4 min - Lab Results Fish Bones: 02/16/19 18:45 Assessment/Plan - Problem List (1) Elective induction of labor planned Impression: Induction of labor: -Has had vigorous response to misoprostol 50 mcg BC x1 -Bryan bulb applied and spontaneously fell out -Currently 6 cm under expectant management -We will start Pitocin to augment contractions. -We will employ a positional change to encourage change in position -Anticipate SROM shortly, consider AROM for further augmentation as needed. FWB: -vertex -Cat I tracing -GBS neg -Cont EFM Anticipate .
--- NOTE | 2019-02-18 12:43 | ANESTHESIA POST OP EVALUATION ---
Anesthesia Post Eval - Post Anesthesia Eval CV Function Including HR & BP: positive: Stable Pain Control: positive: Adequate Nausea & Vomiting: positive: Negative Anesthesia Complications: positive: None (Epidural in place, labor progressing. Changed pump setting to intermittent bolus 10cc q 50 min to cover left side discomfort. Otherwise settings unchanged and patient now comfortable with contractions)
--- NOTE | 2019-02-18 14:06 | PROVIDER PROGRESS NOTE ---
Subjective - Prog Note Date Prog Note Date: 02/18/19 Prog Note Time: 14:01 - Subjective Subjective: Comfortable with epidural Objective - Vital Signs/Intake & Output Intake & Output: Intake & Output 02/15/19 02/16/19 02/17/19 02/18/19 23:59 23:59 23:59 23:59 Intake Total 0947.428 3647 Output Total 300 405 Balance 1548.333 595 - Objective General Appearance: positive: No acute distress Comments/Other: EFM 135 mod berenice, accels with scalp stim, no decels TOCO: Q1-2 min 7/90/0 AROM for moderate meconium - Lab Results Fish Bones: 02/16/19 18:45 Assessment/Plan - Problem List (1) Elective induction of labor planned Impression: IOL: -pitocin at 2 mU/min -Borderline tachysystole -AROM with meconium Will hold pitocin and observe for 1-2 hours. Will restart if contractions perter out If contractions continue w/o progression in cervical change, will place IUPC for further augmentation Peds/RT at delivery for meconium Anticipate
[2019-02-18] MEDS ORDERED: LIDOCAINE-PF 2% 10 ML AMP SUBQ ONE ×2 (17:56→18:27)
[2019-02-18] MEDS ORDERED: CITRIC ACID/SODIUM CITRATE 15 ML UDC PO ONE (18:34)
[2019-02-18] MEDS ORDERED: METHYLENE BLUE 0.5% 50 MG/10 ML AMPULE ONE (19:10)
[2019-02-18] MEDS ORDERED: LACTATED RINGERS 1,000 ML IV ONE ×2 (19:10→23:00)
[2019-02-18] MEDS: KETOROLAC 30 MG/ML VIAL IVP SCH (20:14)
[2019-02-18] MEDS ORDERED: OXYTOCIN 10 UNIT/ML VIAL ONE (20:25)
[2019-02-18] MEDS ORDERED: SODIUM CHLORIDE 0.9% 500 ML IV ONE (20:45)
[2019-02-18] MEDS ORDERED: SCOPOLAMINE PATCH TOP PRN (21:32)
[2019-02-18] MEDS ORDERED: diphenhydrAMINE 25 MG CAPSULE PO PRN (21:32)
[2019-02-18] MEDS ORDERED: ONDANSETRON ODT 4 MG TABLET TL PRN (21:32)
[2019-02-18] MEDS ORDERED: OXYTOCIN/SODIUM CHLORIDE 500 ML IV PRN (21:32)
[2019-02-18] MEDS ORDERED: METHYLERGONOVINE 0.2 MG/ML AMP IM PRN (21:32)
[2019-02-18] MEDS ORDERED: CARBOPROST TROMETHAMINE 250 MCG/ML AMP IM ONE (21:32)
[2019-02-18] MEDS ORDERED: SODIUM CHLORIDE FLUSH 0.9% 10 ML SYRINGE IVP PRN (21:32)
--- NOTE | 2019-02-18 21:40 | OPERATIVE REPORT ---
Operative Report - General Admit Date: 02/16/19 Planned Procedure: Primary low transverse Pre-Op Diagnosis: IUP at 40+0 ega; failed IOL, distress, concern for possible rupture Procedure Performed: Primary low transverse Post Op Diagnosis: Same and delivery of term gestation - Procedure Note Primary Surgeon: Shantel Das MD Secondary Surgeon: Rick Aguirre MD Anesthesia Provider: Elba Ch CRNA Anesthesia Technique: Epidural Pathology: Placenta for routine discard Estimated Blood Loss (mL): 1,000 Indications: Patient is a 24-year-old G1, P0 at 40+0 weeks estimated gestational age here for induction of labor. She had robust reaction to 1 dose of misoprostol 50 mcg BC. Ramon too frequently for further augmentation, Bryan balloon was placed. It fell out spontaneously and cervical dilation was about 5 cm. She started low-dose Pitocin reaching a maximum dose of 2 milliunits/min. She underwent AROM with passage of moderate meconium. Given frequency of contractions, Pitocin was stopped, with plan to continue with expectant management. Hours later, she developed severe pain in her right lower quadrant, despite placement of an epidural. She was unable to tolerate even light touch in the area. Epidural was redosed. Pain appeared to resolve. She still felt discomfort in that right lower quadrant. Cervical exam was performed and fetus was found to be in OP position. head was disengaged with intention to attempt manual rotation of . There was passage of large volume amniotic fluid followed with bright red blood. IUPC was placed. heart tracing showed a prolonged decelerations to the 60 to 80s. scalp electrode was placed. Given the combination of maternal clinical presentation and deceleration, a category 1 was called. tracing did show recovery to baseline heart rate of 150 with some loss of variability. was downgraded to urgent rather than emergent. Written informed consent was obtained. We proceeded urgently to the operating room. Findings: Lateral to the right corner of the hysterotomy was a tear in the myometrium that extended into the broad ligament. Laceration of the uterine artery was noted. Female in vertex position with bandolier cord, weight 3623g and Apgars 8/9. Cord gases pending. Complications: Incomplete uterine rupture. - Other Other Information/Narrative: Risks benefits and alternatives of the procedure were discussed. Written informed consent was obtained. Patient was taken to the operating room where spinal anesthesia was placed and found to be adequate. She was prepped and draped in the usual sterile fashion in the dorsal supine position with a leftw cody tilt. Bryan catheter was in place. SCDs were in place and activated. Cefazolin 2 g IV was given as a preoperative antibiotic. Preoperative timeout was performed. A Pfannenstiel incision was made in the skin with a scalpel and carried through the underlying layer of fascia in a combination of sharp and blunt dissection. The fascia was incised in the midline, and the incision was extended laterally with the Casey scissors. The superior aspect of the fascial incision was grasped with the Agnes clamps, elevated, and the underlying rectus muscles were dissected off bluntly and sharply using the Casey scissors. Attention was then turned to the inferior aspect of the incision, which in a similar fashion, was grasped, tented up with Agnes clamps, and the underlying rectus muscles dissected off bluntly and sharply using Casey scissors. The rectus muscles were then in the midline. The peritoneum was identified, tented up, and entered bluntly. The peritoneal incision was extended superiorly and inferiorly with good visualization of the bladder. The bladder that blade was then inserted. A bladder flap was not created. The lower uterine segment of the uterus was identified, and incised in a transverse fashion with a scalpel. The uterus was entered bluntly. The uterine incision was extended in a craniocaudal fashion by manual stretch. The bladder blade was removed. The was delivered from from vertex position. Vigrous baby was wrapped in a warm sterile towel. Delayed cord clamping was performed. After cessation of pulsations, the cord was clamped x2 and cut. The infant was handed off to the waiting pediatricians. The placenta was removed with manual expression. The uterus was exteriorized and cleared of all clots clots and debris via manual swipe using Ray-Rodger x2. The uterine incision was then repaired in a running locked fashion using 0 Vicryl suture. The incision was reinforced with a running imbricating layer again using 0-Vicryl suture. Evidence of burgeoning uterine rupture was noted at the right lateral aspect of the incision. Beyond the corner of the hysterotomy, there was a tear in the uterus that extended out into the broad ligament with laceration of the uterine artery. The artery was isolated and tied off with a [id number] suture using 0-Vicryl and then 2-0 Chromic. The lateral laceration was closed in 2 layers with a running locked suture followed with reinforcement with a series of interrupted [id number] sutures. Where the myometrium was thick enough to support an imbricating suture, a running imbricating suture using 0 Vicryl was placed. Excellent hemostasis was obtained. The uterus was returned to the abdomen. The gutters were cleared of all clots and debris. The pelvis was irrigated with warm normal saline. The uterine defect was well visualized in normal anatomic position it was noted again to be hemostatic. The peritoneum was then reapproximated with 2-0 Vicryl in a running fashion. The rectus muscles were then reapproximated using interrupted [id number] sutures using 2-0 Chromic. Good hemostasis was noted. The fascia was then closed using 0 Vicryl in a running fashion starting from the left lateral edge to the midline. A second suture was used to close the fascia in a running fashion starting from the right lateral edge and meeting in the midline, agian using 0-Vicryl. The subcutaneous tissue was then irrigated and closed using 2-0 chromic in a running subcutaneous suture. Skin was closed in a running subcuticular suture using 4-0 Monocryl. Steri-Strips were applied to reinforce the incision and dressing was applied. Procedure was well-tolerated and without complication. Sponge lap and needle counts were correct x2. Patient was taken to recovery room in stable condition. Dr. Aguirre assisted with retraction, delivery of the infant, suturing, and sharing of surgical insight.
[2019-02-18] MEDS: ACETAMINOPHEN 500 MG TABLET PO SCH (22:12)
[2019-02-18] MEDS: oxyCODONE 5 MG TABLET PO PRN (22:13)
[2019-02-19] MEDS ORDERED: CARBOPROST TROMETHAMINE 250 MCG/ML AMP IM PRN (01:03)
[2019-02-19] MEDS: KETOROLAC 30 MG/ML VIAL IVP SCH ×3 (02:27→15:26)
[2019-02-19] MEDS: oxyCODONE 5 MG TABLET PO PRN ×5 (02:27→20:56)
[2019-02-19] MEDS: ACETAMINOPHEN 500 MG TABLET PO SCH ×3 (05:11→20:55)
[2019-02-19 05:51] LABS: BASOPHILS # (AUTO) 0.1 10^3/uL (0.0-0.1); BASOPHILS % (AUTO) 0.3 %; EOSINOPHILS % (AUTO) 0.1 %; HGB - HEMOGLOBIN 9.3 g/dL (12.0-16.0); LYMPHOCYTES # (AUTO) 1.8 10^3/uL (1.5-3.5); MEAN CORPUSCULAR HEMOGLOBIN 31.4 pg (27.0-31.0); MEAN CORPUSCULAR HGB CONC 32.7 g/dL (32.0-36.0); MEAN CORPUSCULAR VOLUME 95.9 fL (81.0-99.0); MEAN PLATELET VOLUME 9.6 fL (7.9-10.8); MONOCYTES # (AUTO) 1.3 10^3/uL (0.0-1.0); MONOCYTES % (AUTO) 7.1 %; NEUTROPHILS # (AUTO) 14.9 10^3/uL (1.5-6.6); NEUTROPHILS % (AUTO) 81.9 %; PLT - PLATELET COUNT 194 10^3/uL (130-450); RED BLOOD COUNT 2.96 10^6/uL (4.20-5.40); RED CELL DISTRIBUTION WIDTH 13.7 % (12.0-15.0); WHITE BLOOD COUNT 18.1 x10^3/uL (4.8-10.8)
[2019-02-19] MEDS: SODIUM CHLORIDE FLUSH 0.9% 10 ML SYRINGE IVP SCH ×5 (08:54→15:26)
[2019-02-19] MEDS: DOCUSATE SODIUM 100 MG CAPSULE PO SCH ×2 (08:55→20:56)
[2019-02-19] MEDS: SIMETHICONE CHEW 80 MG TABLET PO SCH ×4 (08:55→18:43)
[2019-02-19] MEDS: LACTATED RINGERS 1,000 ML IV SCH (10:52)
--- NOTE | 2019-02-19 11:21 | PROVIDER PROGRESS NOTE ---
Subjective - General Admit Date: 02/16/19 Procedure Date: 02/18/19 Post Op Days: 1 Procedure Performed: Low transverse - Review of Systems Wound/Incisions: positive: Dressing dry and intact General: positive: No symptoms HEENT: positive: No symptoms Pulmonary: positive: No symptoms - Other Other Information/Narrative: Doing well. Tolerating po. Has not yet been up and out of bed. Feels pain is well managed. Ascencio in place. Objective - Patient Data Vital Signs: Vital Signs x48h Temp Pulse Resp BP Pulse Ox 02/19/19 07:44 98.4 F 91 16 108/68 99 Intake & Output: Intake and Output Totals x24h 02/17/19 02/18/19 02/19/19 23:59 23:59 23:59 Intake Total 3227.669 9531.333 1930 Output Total 300 1025 1725 Balance 7529.213 0090.333 205 - Lab Results Lab Results: 02/19/19 05:03 Other Lab Results: Lab Results x24hrs 02/19/19 02/16/19 Range/Units 05:03 19:20 WBC 18.1 H (4.8-10.8) x10^3/uL RBC 2.96 L (4.20-5.40) 10^6/uL Hgb 9.3 L (12.0-16.0) g/dL Hct 28.4 L (37.0-47.0) % MCV 95.9 (81.0-99.0) fL MCH 31.4 H (27.0-31.0) pg MCHC 32.7 (32.0-36.0) g/dL RDW 13.7 (12.0-15.0) % Plt Count 194 (130-450) 10^3/uL MPV 9.6 (7.9-10.8) fL Neut # (Auto) 14.9 H (1.5-6.6) 10^3/uL Lymph # (Auto) 1.8 (1.5-3.5) 10^3/uL [place] # (Auto) 1.3 H (0.0-1.0) 10^3/uL Eos # (Auto) 0.0 (0.0-0.7) 10^3/uL Baso # (Auto) 0.1 (0.0-0.1) 10^3/uL Absolute Nucleated RBC 0.00 x10^3/uL Nucleated RBC % 0.0 /100WBC Blood Type B POSITIVE Antibody Screen NEGATIVE - Current Medications Current Medications: Current Medications Generic Name Dose Route Start Last Admin Trade Name Freq PRN Reason Stop Dose Admin Acetaminophen 1,000 mg 02/18/19 22:00 02/19/19 05:11 Tylenol PO 1,000 mg Q8H MATT Administration Docusate Sodium 100 mg 02/19/19 09:00 02/19/19 08:55 Colace 100mg Capsule PO 100 mg BID MATT Administration Lactated Ringer's 1,000 mls @ 100 mls/hr 02/18/19 22:00 02/19/19 10:52 Lr IV Not Given .Q10H MATT Oxytocin/Sodium Chloride 500 mls @ 999 mls/hr 02/18/19 21:32 02/18/19 21:00 Pitocin/Sodium Chloride IV 999 milliunit/min PRN PRN 999 mls/hr POST- HEMORR PREVENTION Administration Protocol 999 MILLIUNIT/MIN Ketorolac Tromethamine 30 mg 02/18/19 22:00 02/19/19 08:54 Toradol Inj (30mg) IVP 02/19/19 16:01 30 mg Q6H MATT Administration Oxycodone HCl 5 mg 02/18/19 21:32 02/19/19 08:55 Roxicodone PO 5 mg Q4HR PRN Administration PAIN Simethicone 80 mg 02/18/19 22:00 02/19/19 09:28 Mylicon PO Not Given TID MATT Sodium Chloride 10 ml 02/17/19 01:00 02/19/19 10:51 Normal Saline Flush 0.9% IVP Not Given 0100,0900,1700 MATT Sodium Chloride 10 ml 02/19/19 01:00 02/19/19 09:28 Normal Saline Flush 0.9% IVP Not Given 0100,0900,1700 [facility] - Physical Exam Wound/Incisions: positive: Healing well, Dressing dry and intact General Appearance: positive: No acute distress Respiratory: positive: No respiratory distress, Breath sounds nml Cardiovascular: positive: Regular rate & rhythm Abdomen: positive: Other (appropriately tender with fundus firm below umbilicus) Skin: positive: Color nml Extremities: positive: Non-tender (mild BLE edema, non tender) Neurologic/Psychiatric: positive: Oriented x3 Impression/Plan - Problem List Problem List: POD#1 s/p LTCS Doing well -Cont to advance diet as tolerated -Encourage ambulation -DC ascencio when ambulatory -Transition to po pain meds. HCT 28 and no symptoms BF going well. Anticipate Dc home on POD#2
[2019-02-19] MEDS ORDERED: IBUPROFEN 600 MG TABLET PO SCH (22:00)
[2019-02-20] MEDS: IBUPROFEN 600 MG TABLET PO SCH ×4 (03:40→21:54)
[2019-02-20] MEDS: ACETAMINOPHEN 500 MG TABLET PO SCH ×3 (05:37→21:53)
[2019-02-20] MEDS: DOCUSATE SODIUM 100 MG CAPSULE PO SCH ×2 (08:33→21:54)
[2019-02-20] MEDS: SIMETHICONE CHEW 80 MG TABLET PO SCH ×2 (08:33→15:27)
--- NOTE | 2019-02-20 09:38 | PROVIDER PROGRESS NOTE ---
Subjective - General Admit Date: 02/16/19 Procedure Date: 02/18/19 Post Op Days: 2 Procedure Performed: Low transverse - Review of Systems Wound/Incisions: positive: Healing well, Dressing dry and intact General: positive: No symptoms (Pain 2/10) HEENT: positive: No symptoms Pulmonary: positive: No symptoms Gastrointestinal: positive: Flatus Objective - Patient Data Reviewed Vital Signs: Yes Vital Signs: Vital Signs x48h Temp Pulse Resp BP Pulse Ox 02/20/19 08:00 36.9 C 107 H 18 113/69 98 02/20/19 06:48 36.5 C 92 16 108/62 100 02/20/19 01:37 36.6 C 99 18 113/68 99 Intake & Output: Intake and Output Totals x24h 02/18/19 02/19/19 02/20/19 23:59 23:59 23:59 Intake Total 2348.333 1930 360 Output Total 1025 3875 1550 Balance 1323.333 -1945 -1190 - Lab Results Lab Results: 02/19/19 05:03 - Current Medications Current Medications: Current Medications Generic Name Dose Route Start Last Admin Trade Name Freq PRN Reason Stop Dose Admin Acetaminophen 1,000 mg 02/18/19 22:00 02/20/19 05:37 Tylenol PO 1,000 mg Q8H MATT Administration Docusate Sodium 100 mg 02/19/19 09:00 02/20/19 08:33 Colace 100mg Capsule PO 100 mg BID MATT Administration Lactated Ringer's 1,000 mls @ 100 mls/hr 02/18/19 22:00 02/19/19 10:52 Lr IV Not Given .Q10H MATT Oxytocin/Sodium Chloride 500 mls @ 999 mls/hr 02/18/19 21:32 02/18/19 21:00 Pitocin/Sodium Chloride IV 999 milliunit/min PRN PRN 999 mls/hr POST- HEMORR PREVENTION Administration Protocol 999 MILLIUNIT/MIN Ibuprofen 600 mg 02/20/19 03:00 02/20/19 08:33 Motrin PO 600 mg Q6H MATT Administration Oxycodone HCl 5 mg 02/18/19 21:32 02/19/19 20:56 Roxicodone PO 5 mg Q4HR PRN Administration PAIN Simethicone 80 mg 09/22/19 22:00 02/20/19 08:33 Mylicon PO 80 mg TID MATT Administration Sodium Chloride 10 ml 02/17/19 01:00 02/19/19 15:26 Normal Saline Flush 0.9% IVP 10 ml 0100,0900,1700 MATT Administration Sodium Chloride 10 ml 02/19/19 01:00 02/19/19 09:28 Normal Saline Flush 0.9% IVP Not Given 0100,0900,1700 MATT - Physical Exam Wound/Incisions: positive: Dressing dry and intact General Appearance: positive: No acute distress, Alert, Mild distress Respiratory: positive: Chest non-tender, No respiratory distress, Breath sounds nml Cardiovascular: positive: Regular rate & rhythm, No murmur, No gallop Abdomen: positive: Non-tender Back: negative: CVA tenderness (R), CVA tenderness (L) Skin: positive: Color nml, No rash, Warm, Dry Extremities: negative: Calf tenderness, Avtar's sign/cords Impression/Plan - Problem List Problem List: POD #2 progressing well S/P Uterune rupture
[2019-02-21] MEDS: IBUPROFEN 600 MG TABLET PO SCH ×2 (06:52→16:52)
--- NOTE | 2019-02-21 09:56 | PROVIDER PROGRESS NOTE ---
Subjective - General Admit Date: 02/16/19 Procedure Date: 02/18/19 Post Op Days: 3 Procedure Performed: Low transverse - Review of Systems Wound/Incisions: positive: Other (steristrips in place. Suture line CDI) General: positive: No symptoms (Pain 2/10) HEENT: positive: No symptoms Pulmonary: positive: No symptoms Gastrointestinal: positive: Flatus - Other Other Information/Narrative: Doing remarkably well. Has been taking only ibuprofen for pain. Up and ambulating. Tolerating po. Voiding. Pumping and BF. Objective - Patient Data Vital Signs: Vital Signs x48h Temp Pulse Resp BP Pulse Ox 02/21/19 06:53 98.1 F 91 16 118/71 100 Intake & Output: Intake and Output Totals x24h 02/19/19 02/20/19 02/21/19 23:59 23:59 23:59 Intake Total 1930 360 Output Total 3875 1550 Balance -1945 -1190 - Lab Results Lab Results: 02/19/19 05:03 - Current Medications Current Medications: Current Medications Generic Name Dose Route Start Last Admin Trade Name Freq PRN Reason Stop Dose Admin Acetaminophen 1,000 mg 02/18/19 22:00 02/20/19 21:53 Tylenol PO 1,000 mg Q8H MATT Administration Docusate Sodium 100 mg 02/19/19 09:00 02/20/19 21:54 Colace 100mg Capsule PO 100 mg BID MATT Administration Lactated Ringer's 1,000 mls @ 100 mls/hr 02/18/19 22:00 02/19/19 10:52 Lr IV Not Given .Q10H MATT Oxytocin/Sodium Chloride 500 mls @ 999 mls/hr 02/18/19 21:32 02/18/19 21:00 Pitocin/Sodium Chloride IV 999 milliunit/min PRN PRN 999 mls/hr POST- HEMORR PREVENTION Administration Protocol 999 MILLIUNIT/MIN Ibuprofen 600 mg 02/20/19 03:00 02/21/19 06:52 Motrin PO 600 mg Q6H MATT Administration Oxycodone HCl 5 mg 02/18/19 21:32 02/19/19 20:56 Roxicodone PO 5 mg Q4HR PRN Administration PAIN Simethicone 80 mg 02/18/19 22:00 02/20/19 15:27 Mylicon PO 80 mg TID MATT Administration Sodium Chloride 10 ml 02/17/19 01:00 02/19/19 15:26 Normal Saline Flush 0.9% IVP 10 ml 0100,0900,1700 MATT Administration Sodium Chloride 10 ml 02/19/19 01:00 02/19/19 09:28 Normal Saline Flush 0.9% IVP Not Given 0100,0900,1700 MATT - Physical Exam Wound/Incisions: positive: Healing well, Other (Steristrips in place. CDI) General Appearance: positive: No acute distress Respiratory: positive: No respiratory distress Abdomen: positive: Non-tender, Other (FF below umbi) Skin: positive: Color nml Extremities: positive: Non-tender (No BLE edema/tenderness) Neurologic/Psychiatric: positive: Oriented x3 Impression/Plan - Problem List Problem List: POD#3 s/p LTCS Meeting goals for discharge Routine dc instructions given DC to home [place]
--- NOTE | 2019-02-21 10:12 | DISCHARGE SUMMARY ---
"Discharge Summary Admit Date: 02/16/19 Discharge Date: 02/21/19 Discharging Provider: Shantel Das MD Condition at Discharge: Stable Discharge Disposition: 01 Home, Self Care - DIAGNOSES Admission Diagnoses: IUP at 40w0d Discharge Diagnoses with Status of Each Condition: Same and Delivery of term gestation via - HPI History of Present Illness: Patient is a 24-year-old G1, P0 at 39w6d with JUSTYN 02/17/19 weeks gestational age for induction of labor.. She was last seen in clinic on 02/07/2019. At that time she had severe back pain due to sciatica. She was seen in the triage for one isolated elevated blood pressure. All blood pressures were normal on repeat. [facility] labs are normal. No elevated blood pressures at admission nor did she have any symptoms of headache/vision change/right upper quadrant pain. Consents were obtained in clinic on 02/07/2019. She was admitted 02/12/19 here for an elective induction of labor. She had 3 doses of misoprostol with no significant cervical change in the setting of tachysystole. Was discharged with plan to readmit for IOL on 02/16/19. She presents for repeat attempt at induction of labor. 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 Procedures: Low transverse with repair of mild lateral uterine rupture - HOSPITAL COURSE Hospital Course: Patient is a 24-year-old G1, P0 at 40+0 weeks estimated gestational age here for induction of labor. She had robust reaction to 1 dose of misoprostol 50 mcg BC. Ramon too frequently for further augmentation, Bryan balloon was placed. It fell out spontaneously and cervical dilation was about 5 cm. She started low-dose Pitocin reaching a maximum dose of 2 milliunits/min. She underwent AROM with passage of moderate meconium. Given frequency of contractions, Pitocin was stopped, with plan to continue with expectant management. Hours later, she developed severe pain in her right lower quadrant, despite placement of an epidural. She was unable to tolerate even light touch in the area. Epidural was redosed. Pain appeared to resolve. She still felt discomfort in that right lower quadrant. Cervical exam was performed and fetus was found to be in OP position. head was disengaged with intention to attempt manual rotation of infant. There was passage of large volume amniotic fluid followed with bright red blood. IUPC was placed. heart tracing showed a prolonged decelerations to the 60 to 80s. scalp electrode was placed. Given the combination of maternal clinical presentation and deceleration, a category 1 was called. tracing did show recovery to baseline heart rate of 150 with some loss of variability. was downgraded to urgent rather than emergent. Written informed consent was obtained. We proceeded urgently to the operating room. Findings: Lateral to the right corner of the hysterotomy was a tear in the myometrium that extended into the broad ligament. Laceration of the uterine artery was noted. Female in vertex position with bandolier cord, weight 3623g and Apgars 8/9. Cord gases pending. Post-operative course was unremarkable. By POD#3, she was up and ambulating, tolerating po, pain well managed. Blood type B+/ Rubella immune. Discharged to home on POD#3. - ALLERGIES Allergies/Adverse Reactions: Allergies Allergy/AdvReac Type Severity Reaction Status Date / Time No Known Drug Allergies Allergy Verified 01/22/19 20:57 - MEDICATIONS Home Medications: Ambulatory Orders Medication Instructions Recorded Confirmed Neomycin/Poly/Dex Ophth Drops 1 drops LEFTEYE QID #1 bottle 01/22/19 [Maxitrol Ophth Drops] - LABS Result Diagrams: 02/19/19 05:03 - FOLLOW UP Follow Up: 1 week for incision check 6 weeks for check - TIME SPENT Time Spent in Discharge (Minutes): 30"
[2019-02-21] MEDS: ACETAMINOPHEN 500 MG TABLET PO SCH (11:44)
[2019-02-21 14:21] VITALS: BP 118/68
[2019-02-21] MEDS: DOCUSATE SODIUM 100 MG CAPSULE PO SCH (16:52)
== END 2019-02-21 18:00 | disposition home or self-care (01) | DRG 786 ==
LOC: WFO 16:55 → FBP 17:00 → WFO 19:14 → FBP 19:14
PROVIDERS: ADMIT Obstetrics & Gynecology; ATTEND Obstetrics & Gynecology
PROC: 10907ZC Drainage of Amniotic Fluid, Therapeutic from Products of Conception, Via Natural or Artificial Opening (ICD-10-PCS; 2019-02-18)
PROC: 10D00Z1 Extraction of Products of Conception, Low, Open Approach (ICD-10-PCS; principal; 2019-02-19)
DX: O76 Abnormality in fetal heart rate and rhythm complicating labor and delivery (principal); O71.1 Rupture of uterus during labor; O64.0XX0 Obstructed labor due to incomplete rotation of fetal head, not applicable or unspecified; O77.0 Labor and delivery complicated by meconium in amniotic fluid; Z37.0 Single live birth; Z3A.39 39 weeks gestation of pregnancy
CPT/HCPCS: 36415; 85025; 86850; 86900; 86901; A9270; J7120

== ENCOUNTER 2021-01-25 13:16 | Emergency (ER) | payer OTHER ==
[2021-01-25 13:46] LABS: HCG UR QUAL NEGATIVE
--- NOTE | 2021-01-25 13:54 | ED Physician Documentation ---
PD HPI CHEST PAIN - Stated complaint Stated Complaint: FEMALE - Chief complaint Chief Complaint: Abd Pain - History obtained from History obtained from: Patient - Additional information Additional information: 26-year-old woman 2 weeks years . she had a Nexplanon placed. She had a menses last month for just a few days and now has been bleeding straight for 2 weeks. There is no associated pelvic cramping or pain. She also notes heart fluttering that is been very constant over the last couple of weeks. She does not drink caffeine. There is no chest pain or trouble alfa athing. Review of Systems Constitutional: reports: Reviewed and negative Eyes: reports: Reviewed and negative Ears: reports: Reviewed and negative Nose: reports: Reviewed and negative Throat: reports: Reviewed and negative PD PAST MEDICAL HISTORY - Past Medical History Cardiovascular: None Respiratory: None Neuro: None Endocrine/Autoimmune: None GI: None EARLY CHILDHOOD EDUCATION COORDINATOR: None : None HEENT: None Psych: None Musculoskeletal: None, Scoliosis Derm: None - Past Surgical History Past Surgical History: No - Present Medications Home Medications: Ambulatory Orders Medication Instructions Recorded Confirmed Neomycin/Poly/Dex Ophth Drops 1 drops LEFTEYE QID #1 bottle 01/22/19 [Maxitrol Ophth Drops] Norgestimate-Ethinyl Estradiol 1 each PO DAILY #1 packet 01/25/21 [Ortho Tri-Cyclen 28 Tablet] - Allergies Allergies/Adverse Reactions: Allergies Allergy/AdvReac Type Severity Reaction Status Date / Time No Known Drug Allergies Allergy Verified 01/25/21 13:19 - Social History Does the pt smoke?: No Smoking Status: Never smoker Does the pt drink ETOH?: No Does the pt have substance abuse?: No - Immunizations Immunizations are current?: Yes - POLST Patient has POLST: No PD ED PE NORMAL - Vitals Vital signs reviewed: Yes - General General: Alert and oriented X 3, No acute distress - HEENT HEENT: PERRL, EOMI - Neck Neck: Supple, no meningeal sign, No bony TTP - Cardiac Cardiac: RRR, No murmur - Respiratory Respiratory: No respiratory distress, Clear bilaterally - Abdomen Abdomen: Non tender - Neuro Neuro: Alert and oriented X 3, Normal speech Results - Vitals Vitals: Vital Signs - 24 hr 01/25/21 13:19 Temperature 36.8 C Heart Rate 90 Respiratory 16 Rate Blood Pressure 119/78 O2 Saturation 99 Oxygen O2 Source Room air - EKG (time done) 1327 Rate: Rate (enter#) (88) Rhythm: NSR [place]: Normal Intervals: Normal RI QRS: Normal Ischemia: Normal ST segments - Labs Labs: Laboratory Tests 01/25/21 01/25/21 01/25/21 13:38 13:48 13:48 WBC 7.1 RBC 4.46 Hgb 13.8 Hct 41.2 MCV 92.4 MCH 30.9 MCHC 33.5 RDW 13.0 Plt Count 349 MPV 8.6 Neut # (Auto) 4.0 Lymph # (Auto) 2.3 [place] # (Auto) 0.5 Eos # (Auto) 0.2 Baso # (Auto) 0.0 Absolute Nucleated RBC 0.00 Nucleated RBC % 0.0 Sodium 140 Potassium 4.2 Chloride 104 Carbon Dioxide 26 Anion Gap 10.0 BUN 14 Creatinine 0.9 Estimated GFR (MDRD) 76 L Glucose 101 H Calcium 9.6 Magnesium 2.0 Total Bilirubin 0.8 AST 18 ALT 16 Alkaline Phosphatase 65 Total Protein 8.6 H Albumin 4.3 Globulin 4.3 H Albumin/Globulin Ratio 1.0 Lipase 30 Urine HCG, Qual NEGATIVE Blood Type 01/25/21 13:48 WBC RBC Hgb Hct MCV MCH MCHC RDW Plt Count MPV Neut # (Auto) Lymph # (Auto) [place] # (Auto) Eos # (Auto) Baso # (Auto) Absolute Nucleated RBC Nucleated RBC % Sodium Potassium Chloride Carbon Dioxide Anion Gap BUN Creatinine Estimated GFR (MDRD) Glucose Calcium Magnesium Total Bilirubin AST ALT Alkaline Phosphatase Total Protein Albumin Globulin Albumin/Globulin Ratio Lipase Urine HCG, Qual Blood Type B POSITIVE PD MEDICAL DECISION MAKING - ED course ED course: On the monitor she has PVCs which are occasional and correspond with her p alpitations. In general she has them maybe 2-3 times per minute. 26-year-old woman who has had 2 weeks of constant bleeding now preceded by block engraver bleeding earlier in the month. She has Nexplanon in place. Its 2 years old. She may have withdrawal bleeding, but the implant should last 3 years. She is not anemic, not . Case discussed by phone with our on-call COPY CLERK, Dr. Bazan. Agrees with oral contraceptive pills until follow-up. Departure - Departure Disposition: 01 Home, Self Care Clinical Impression: Vaginal bleeding, PVCs (premature ventricular contractions) Condition: Good Record reviewed to determine appropriate education?: Yes Instructions: Premature Ventricular Contract About, ED Bleed Irregular Vaginal Follow-Up: Keiko Das MD [Provider Admit Priv/Credential] - Sheila Wynn CNM, ARNP [Provider Admit Priv/Credential] - Prescriptions: Norgestimate-Ethinyl Estradiol [Ortho Tri-Cyclen 28 Tablet] 1 each PO DAILY #1 packet Comments: As discussed, your heart fluttering is related to premature ventricular contractions. These are benign early heartbeats. They require no specific therapy in general. For the vaginal bleeding, we suspect that may be due to estrogen withdrawal. We are starting control for that, we sent the prescription to [facility] in [place] electronically. Follow-up with Sheila Colindres or Dr. Das regarding this. Return if worsening.
[2021-01-25 13:56] LABS: BASOPHILS % (AUTO) 0.6 %; EOSINOPHILS # (AUTO) 0.2 10^3/uL (0.0-0.7); HCT - HEMATOCRIT 41.2 % (37.0-47.0); HGB - HEMOGLOBIN 13.8 g/dL (12.0-16.0); LYMPHOCYTES # (AUTO) 2.3 10^3/uL (1.5-3.5); MEAN CORPUSCULAR HEMOGLOBIN 30.9 pg (27.0-31.0); MEAN CORPUSCULAR HGB CONC 33.5 g/dL (32.0-36.0); MEAN CORPUSCULAR VOLUME 92.4 fL (81.0-99.0); MEAN PLATELET VOLUME 8.6 fL (7.9-10.8); MONOCYTES # (AUTO) 0.5 10^3/uL (0.0-1.0); MONOCYTES % (AUTO) 7.6 %; NEUTROPHILS % (AUTO) 56.7 %; PLT - PLATELET COUNT 349 10^3/uL (130-450); RED BLOOD COUNT 4.46 10^6/uL (4.20-5.40); WHITE BLOOD COUNT 7.1 x10^3/uL (4.8-10.8)
[2021-01-25 14:12] LABS: ALBUMIN 4.3 g/dL (3.2-5.5); BILIRUBIN,TOTAL 0.8 mg/dL (0.2-1.0); CALCIUM 9.6 mg/dL (8.5-10.3); CREATININE 0.9 mg/dL (0.4-1.0); POTASSIUM 4.2 mmol/L (3.5-5.0); TOTAL PROTEIN 8.6 g/dL (6.7-8.2)
[2021-01-25 14:55] VITALS: BP 116/70
== END 2021-01-25 14:55 | disposition home or self-care (01) ==
LOC: ED 13:16
DX: N93.9 Abnormal uterine and vaginal bleeding, unspecified (principal); I49.3 Ventricular premature depolarization
CPT/HCPCS: 36415; 80053; 81025; 83690; 83735; 85025; 86900; 86901; 93005; 99283; 99284